=== PATIENT | female | born 1980 | race Caucasian/White ===

== ENCOUNTER 2024-09-10 03:00 | Outpatient (CLI) | payer SELFPAY ==
[2024-09-11 04:28] LABS: Kit/Specimen SENT
== END 2024-09-10 03:01 | disposition home or self-care (01) ==
LOC: LBO 09-11 03:56
PROVIDERS: PCP Internal Medicine; Visit Provider Internal Medicine
DX: Z01.812 Encounter for preprocedural laboratory examination (principal)
CPT/HCPCS: 36415

== ENCOUNTER 2025-06-16 18:52 | Outpatient (REF) | payer SELFPAY | END 2025-06-16 18:53 | disposition home or self-care (01) | LOC: LBN 18:52 | PROVIDERS: PCP Internal Medicine; Visit Provider Physician Assistant Medical | DX: R30.0 Dysuria (principal); N89.8 Other specified noninflammatory disorders of vagina | CPT/HCPCS: 87086; 87480; 87510; 87660 ==